=== PATIENT | male | born 1980 | race African-American/Black ===

== ENCOUNTER 2017-01-03 21:17 | Emergency (ER) | payer OTHER ==
[~2017-01-03] VITALS: Ht 170.2 cm; Wt 63.6 kg
[2017-01-03] MEDS ORDERED: HYDROCODONE/ACETAMINOPHEN 5-325 MG TABLET PO ONE (22:30)
[2017-01-03] MEDS ORDERED: BACITRACIN 0.9 GM PACKET OINTMENT TP ONE (23:00)
[2017-01-03] MEDS ORDERED: PERTUSS(ACELL),DIPH,TET VAC/PF 0.5 ML VIAL IM ONE (23:15)
[2017-01-03 23:30] VITALS: BP 119/74
== END 2017-01-04 00:07 | disposition home or self-care (01) ==
LOC: EMS 21:19
DX: S90.32XA Contusion of left foot, initial encounter (principal); W20.8XXA Other cause of strike by thrown, projected or falling object, initial encounter; Y93.89 Activity, other specified; Y92.89 Other specified places as the place of occurrence of the external cause; Y99.8 Other external cause status
CPT/HCPCS: 29515; 90471; 90715; 99284